=== PATIENT | female | born 1965 | race Caucasian/White ===

== ENCOUNTER 2019-02-03 19:15 | Emergency (ER) | payer MEDICAID, OTHER ==
[~2019-02-03] VITALS: Ht 172.7 cm; Wt 58.1 kg
--- NOTE | 2019-02-03 19:48 | NUR ---
bibs for c/o lknee swelling and redness and pain . skin red and hot to touch. no recent injury. vss. will cont to monitor ,
[2019-02-03 20:20] LABS: BASOPHILS # (AUTO) 0.1 /CMM (0.0-0.2); EOSINOPHILS % (AUTO) 0.9 % (0.0-6.0); HEMATOCRIT 35 % (33-45); LYMPHOCYTES # (AUTO) 1.3 /CMM (0.8-4.8); LYMPHOCYTES % (AUTO) 14.4 % (20.0-44.0); MEAN CORPUSCULAR HGB CONC 34 g/dl (31.0-36.0); MEAN CORPUSCULAR VOLUME 95 fL (82-100); MONOCYTES # (AUTO) 0.7 /CMM (0.1-1.30); MONOCYTES % (AUTO) 7.9 % (2.0-12.0); NEUTROPHILS # (AUTO) 6.9 /CMM (1.8-8.9); NEUTROPHILS % (AUTO) 75.8 % (43.0-81.0); PLATELET COUNT (AUTO) 295 /CMM (150-450); RED BLOOD CELL COUNT(AUTO) 3.68 MIL/uL (4.0-5.2); WHITE BLOOD COUNT (AUTO) 9.1 K/uL (4.3-11.0)
[2019-02-03 20:29] LABS: CALCIUM, SERUM 8.9 mg/dL (8.5-10.1); CREATININE 0.8 mg/dL (0.6-1.3); POTASSIUM 3.3 mmol/L (3.5-5.1)
[2019-02-03 20:44] LABS: ALBUMIN 2.8 g/dL (3.4-5.0); BILIRUBIN,DIRECT 0.1 mg/dL (0.0-0.2); BILIRUBIN,TOTAL 0.4 mg/dL (0.2-1.0); TOTAL PROTEIN, SERUM 7.6 g/dL (6.4-8.2)
[2019-02-03] MEDS ORDERED: VANCOMYCIN 1 GM in IV D5W 250 ML IV ONE (21:30)
[2019-02-03] MEDS ORDERED: PIPERACILLIN /TAZOBACTAM 3.375 G in IV D5W 50 ML IV ONE (21:30)
[2019-02-03] MEDS ORDERED: ACETAMINOPHEN 325 MG TABLET PO ONE (21:30)
[2019-02-03] MEDS ORDERED: ACETAMINOPHEN 325 MG TABLET ONE (21:36)
[2019-02-03] MEDS ORDERED: PIPERACILLIN /TAZOBACTAM 3.375 G VIAL IV ONE (21:36)
[2019-02-03] MEDS ORDERED: VANCOMYCIN 1 GM VIAL ONE (21:36)
--- NOTE | 2019-02-03 21:44 | NUR ---
END TIME FOR ZOSYN: [id number]
--- NOTE | 2019-02-03 21:45 | NUR ---
PT TO BE TRANSFERRED TO [facility]. WAITING FOR MORE INFORMATION FROM [employer]IST[employer] COORDINATOR.
--- NOTE | 2019-02-03 23:38 | NUR ---
PT TO BE TRANSFERRED TO [facility] MD: DR. BLAKE BED ASSIGNMENT: [id number] NUMBER FOR REPORT: [phone] [facility] TRIP NUMBER [id number]
--- NOTE | 2019-02-04 00:06 | NUR ---
report given to Tabitha at [facility] forth floor.
--- NOTE | 2019-02-04 00:19 | NUR ---
BED ASSIGNMENT AT [facility] CHANGED TO [facility]
[2019-02-04 00:26] VITALS: BP 127/63
--- NOTE | 2019-02-04 00:26 | NUR ---
Patient is resting comfortably in bed with eyes closed. Easily aroused. VSS
--- NOTE | 2019-02-04 00:45 | NUR ---
PT WAS TRANSFERRED TO [facility] IN STABLE CONDITION VIA GURNEY. REPORT GIVEN TO assembler latches and springs
== END 2019-02-04 02:01 ==
LOC: ER 19:16
DX: L03.116 Cellulitis of left lower limb (principal); F15.10 Other stimulant abuse, uncomplicated; W01.198A Fall on same level from slipping, tripping and stumbling with subsequent striking against other object, initial encounter; Y93.89 Activity, other specified; Y92.89 Other specified places as the place of occurrence of the external cause; Y99.8 Other external cause status
CPT/HCPCS: 36415; 73564; 80048; 80076; 83605; 84145; 85025; 85730; 87040 ×2; 87081; 96365; 96368; 99285; J2543; J3370; J7030; J7060